=== PATIENT | male | born 1985 | race Caucasian/White ===

== ENCOUNTER 2018-11-01 01:50 | Emergency (ER) | payer OTHER ==
[~2018-11-01] VITALS: Ht 172.7 cm; Wt 89.4 kg
[2018-11-01 01:57] VITALS: BP 144/87; Ht 172.7 cm; Wt 89.4 kg
== END 2018-11-01 04:04 | disposition left against medical advice (07) ==
LOC: ED 01:50
DX: Z53.21 Procedure and treatment not carried out due to patient leaving prior to being seen by health care provider (principal)